=== PATIENT | male | born 1955 | race American Indian/Alaskan Native ===

== ENCOUNTER 2017-08-12 11:09 | Emergency (ER) | payer MEDICAID ==
[2017-08-12 11:18] VITALS: BP 149/96; PULSE 77; RESP 18; TEMP 98; O2SAT 100
--- NOTE | 2017-08-12 13:39 | ED PDOC ---
Lower Extremity Pain/Injury Time Seen by Provider: 08/12/17 12:10 Chief Complaint (Nursing): Lower Extremity Problem/Injury Chief Complaint (Provider): Lower extremity injury History Per: Patient History/Exam Limitations: no limitations Onset/Duration Of Symptoms: Days (x3) Current Symptoms Are (Timing): Still Present Pain Scale Rating Of: 8 Additional Complaint(s): Antoni Mike is a 61 year old male, with a past medical history of diabetes and hypertension, who presents to the emergency department via EMS with a wound on right lower leg onset x3 days. Patient reports x3 days ago he went to see his doctor and they did an EKG. Patient had a sticker placed but when he removed it he noticed a wound underneath it. Skin is missing and is painful. Patient has a chronic loss of sensation in his legs. He goes to [place] for medical care. He denies fever, chills or any other medical complaints. PMD: None provided. Past Medical History Reviewed: Historical Data, Nursing Documentation, Vital Signs Vital Signs: Last Vital Signs Temp 98 F 08/12/17 11:16 Pulse 77 08/12/17 11:16 Resp 18 08/12/17 11:16 BP 149/96 H 08/12/17 11:16 Pulse Ox 100 08/12/17 11:16 - Medical History PMH: Diabetes, HTN, Hyperlipidemia - Surgical History Surgical History: No Surg Hx - Family History Family History: States: Unknown Family Hx - Social History Current smoker - smoking cessation education provided: No Alcohol: None Drugs: Denies - Immunization History Hx Tetanus Toxoid Vaccination: No Hx Influenza Vaccination: No Hx Pneumococcal Vaccination: No - Home Medications Home Medications: Ambulatory Orders Medication Instructions Recorded Aspirin [Aspirin Chewable] 81 mg PO DAILY 07/14/17 Gabapentin [Neurontin] 300 mg PO BID 07/14/17 Lisinopril [Prinivil] 10 mg PO DAILY 07/14/17 MetFORMIN [glucOPHAGE] 1,000 mg PO BID 07/14/17 - Allergies Allergies/Adverse Reactions: Allergies Allergy/AdvReac Type Severity Reaction Status Date / Time No Known Allergies Allergy Verified 08/12/17 11:16 Review of Systems ROS Statement: Except As Marked, All Systems Reviewed And Found Negative Constitutional: Negative for: Fever, Chills Musculoskeletal: Positive for: Leg Pain (right lower leg wound) Physical Exam - Physical Exam Appears: Positive for: Well, Non-toxic Head Exam: Positive for: ATRAUMATIC, NORMAL INSPECTION Skin: Positive for: Normal Color, Warm, Dry Eye Exam: Positive for: Normal appearance, EOMI Neck: Positive for: Painless ROM, Supple Respiratory: Negative for: Respiratory Distress Extremity: Positive for: Normal ROM (full on lower extremities), Other (right lower leg 2cm open wound healing, no discharge, no bleeding.). Negative for: Pedal Edema, Deformity, Swelling Neurologic/Psych: Positive for: Alert, Oriented - ECG O2 Sat by Pulse Oximetry: 100 (RA) Pulse Ox Interpretation: Normal Medical Decision Making Medical Decision Making: Initial Impression: open wound on the right lower leg. Initial Plan: -accucheck -Wound care dressing and patient will be referred to wound care clinic. Scribe Attestation: Documented by Herbert Santos, acting as a scribe for Marko Bruner MD Provider Scribe Attestation: All medical record entries made by the Scribe were at my direction and personally dictated by me. I have reviewed the chart and agree that the record accurately reflects my personal performance of the history, physical exam, medical decision making, and the department course for this patient. I have also personally directed, reviewed, and agree with the discharge instructions and disposition. Disposition - Clinical Impression Clinical Impression: Wound of left leg - Patient ED Disposition Is Patient to be Admitted: No Doctor Will See Patient In The: Office Counseled Patient/Family Regarding: Studies Performed, Diagnosis, Need For Followup - Disposition [facility]errals: [facility] [Outside] Disposition: Routine/Home Disposition Time: 13:54 Condition: GOOD Additional Instructions: Follow up with wound clinic in 3 days. Instructions: Acute Wound Care (ED)
== END 2017-08-12 14:20 | disposition home or self-care (01) ==
LOC: H.ER 11:09
DX: S81.802A Unspecified open wound, left lower leg, initial encounter (principal); Y92.89 Other specified places as the place of occurrence of the external cause; E11.9 Type 2 diabetes mellitus without complications; E78.5 Hyperlipidemia, unspecified; I10 Essential (primary) hypertension; Z79.82 Long term (current) use of aspirin; Z79.84 Long term (current) use of oral hypoglycemic drugs

== ENCOUNTER 2017-09-23 12:41 | Emergency (ER) | payer MEDICAID ==
[2017-09-23 12:45] VITALS: BP 149/91; PULSE 95; RESP 18; TEMP 98.1; O2SAT 98
--- NOTE | 2017-09-23 14:09 | ED PDOC ---
HPI: General Adult Chief Complaint (Nursing): Hip Pain Chief Complaint (Provider): Hip Pain History Per: Patient History/Exam Limitations: no limitations Onset/Duration Of Symptoms: Days (x3) Current Symptoms Are (Timing): Still Present Recent Trauma: None Additional Complaint(s): Antoni Mike is a 61 year old male, with a past medical history of diabetes, HTN , hyperlipidemia, chronic lymphoma, and b/l peripheral neuropathy, who was brought to the emergency department by EMS for left sided hip pain onset for x3 days. He reports b/l leg pain but states the pain is due to his hx of peripheral neuropathy. Patient denies any trauma or fall. No further medical complaints. PMD: None provided. Past Medical History Reviewed: Historical Data, Nursing Documentation, Vital Signs Vital Signs: Last Vital Signs Temp 98.1 F 09/23/17 12:43 Pulse 95 H 09/23/17 12:43 Resp 18 09/23/17 12:43 BP 149/91 H 09/23/17 12:43 Pulse Ox 98 09/23/17 14:20 - Medical History PMH: Diabetes, HTN, Hyperlipidemia Other PMH: b/l peripheral neuropathy. - Surgical History Surgical History: No Surg Hx - Family History Family History: States: Unknown Family Hx - Immunization History Hx Tetanus Toxoid Vaccination: No Hx Influenza Vaccination: No Hx Pneumococcal Vaccination: No - Home Medications Home Medications: Ambulatory Orders Medication Instructions Recorded Aspirin [Aspirin Chewable] 81 mg PO DAILY 07/14/17 Gabapentin [Neurontin] 300 mg PO BID 07/14/17 Lisinopril [Prinivil] 10 mg PO DAILY 07/14/17 MetFORMIN [glucOPHAGE] 1,000 mg PO BID 07/14/17 Naproxen 1 tab PO Q12 PRN #14 tab 09/23/17 - Allergies Allergies/Adverse Reactions: Allergies Allergy/AdvReac Type Severity Reaction Status Date / Time No Known Allergies Allergy Verified 08/12/17 11:16 Review of Systems ROS Statement: Except As Marked, All Systems Reviewed And Found Negative Musculoskeletal: Positive for: Leg Pain (chronic. b/l ), Other (left sided hip pain. ) Physical Exam - Reviewed Nursing Documentation Reviewed: Yes Vital Signs Reviewed: Yes - Physical Exam Appears: Positive for: Well, Non-toxic Head Exam: Positive for: ATRAUMATIC, NORMAL INSPECTION, NORMOCEPHALIC Skin: Positive for: Normal Color, Warm, Dry Eye Exam: Positive for: Normal appearance Neck: Positive for: Painless ROM Respiratory: Negative for: Respiratory Distress Extremity: Negative for: Deformity, Swelling, Other (No ecchymosis on hip region ) Neurologic/Psych: Positive for: Alert, Oriented - ECG O2 Sat by Pulse Oximetry: 98 (RA) Pulse Ox Interpretation: Normal Medical Decision Making Medical Decision Making: Initial Impression: Hip pain Initial Plan: --Hip min 2V w/ Pelvis LT [RAD] --reevaluation ~ Scribe Attestation: Documented by Herbert Santos, acting as a scribe for Shameka Thibodeaux PA-C. Provider Scribe Attestation: All medical record entries made by the Scribe were at my direction and personally dictated by me. I have reviewed the chart and agree that the record accurately reflects my personal performance of the history, physical exam, medical decision making, and the department course for this patient. I have also personally directed, reviewed, and agree with the discharge instructions and disposition. Disposition - Clinical Impression Clinical Impression: Hip pain - Patient ED Disposition Is Patient to be Admitted: No - Disposition Referrals: [facility] [Outside] Disposition: Routine/Home Disposition Time: 14:25 Condition: FAIR Prescriptions: Naproxen 1 tab PO Q12 PRN #14 tab PRN Reason: Pain, Moderate (4-7) Instructions: Hip Pain (ED) Forms: [employer] ([place])
--- NOTE | 2017-09-23 14:58 | RAD ---
PROCEDURE: Left Hip X-ray Radiographs. HISTORY: hip pain COMPARISON: None. FINDINGS: BONES: No acute fracture. Suggestion of bony protrusion along the anterosuperior aspect of the femoral head/neck junction. JOINTS: Normal. SOFT TISSUES: Normal. OTHER FINDINGS: None. IMPRESSION: No straighter fracture-dislocation. Suggestion of bony protrusion along the anterosuperior aspect of the left femoral head/neck junction which raises the possibility of femoroacetabular impingement. ER notification submitted electronically.
== END 2017-09-23 14:50 | disposition home or self-care (01) ==
LOC: H.ER 12:41
DX: M25.552 Pain in left hip (principal); E11.9 Type 2 diabetes mellitus without complications; Z79.84 Long term (current) use of oral hypoglycemic drugs; E78.5 Hyperlipidemia, unspecified; G62.9 Polyneuropathy, unspecified; I10 Essential (primary) hypertension; Z79.82 Long term (current) use of aspirin